=== PATIENT | male | born 1975 | race Caucasian/White ===

== ENCOUNTER 2017-11-30 23:04 | Emergency (ER) | payer OTHER, BC ==
[~2017-11-30] VITALS: Ht 182.8 cm; Wt 117.9 kg
[~2017-11-30 23:04] MED LIST: CEPHALEXIN500 M1 PO; CLARITIN10 MG PO; LISINOPRIL40 MG PO; OMEPRAZOLE20 M2 PO
== END 2017-12-01 02:13 | disposition home or self-care (01) ==
LOC: ED 23:04
DX: S96.812A Strain of other specified muscles and tendons at ankle and foot level, left foot, initial encounter (principal); S90.02XA Contusion of left ankle, initial encounter; I10 Essential (primary) hypertension; K21.9 Gastro-esophageal reflux disease without esophagitis; Z79.899 Other long term (current) drug therapy; Z88.6 Allergy status to analgesic agent; X50.1XXA Overexertion from prolonged static or awkward postures, initial encounter; Y93.89 Activity, other specified; Y92.69 Other specified industrial and construction area as the place of occurrence of the external cause; Y99.9 Unspecified external cause status

== ENCOUNTER 2018-12-14 19:38 | Emergency (ER) | payer BC ==
[~2018-12-14] VITALS: Ht 182.8 cm; Wt 122.5 kg
== END 2018-12-14 21:08 | disposition home or self-care (01) ==
LOC: ED 19:38
DX: S52.611A Displaced fracture of right ulna styloid process, initial encounter for closed fracture (principal); S01.01XA Laceration without foreign body of scalp, initial encounter; Z88.6 Allergy status to analgesic agent; Z79.2 Long term (current) use of antibiotics; Z79.899 Other long term (current) drug therapy; W21.89XA Striking against or struck by other sports equipment, initial encounter; Y93.67 Activity, basketball; Y92.89 Other specified places as the place of occurrence of the external cause; Y99.8 Other external cause status

== ENCOUNTER → 2019-05-06 | Outpatient (CLI) | payer BC ==
[2019-05-06 12:36] LABS: BASO % 0.8 % (0.0-1.0); EOS # 0.1 10*3/uL (0.0-0.4); EOS % 2.3 % (1.0-4.0); HEMATOCRIT 46.1 % (42.0-52.0); HEMOGLOBIN 16.1 g/dl (14.0-18.0); LYMPH # 1.8 10*3/uL (1.3-4.4); LYMPH % 37.2 % (27.0-41.0); MEAN CELL VOLUME 91.3 fl (80.0-94.0); MEAN CORPUSCULAR HGB 31.9 pg (27.0-31.0); MEAN CORPUSCULAR HGB CONC 34.9 g/dl (33.0-37.0); MEAN PLATELET VOLUME 11.2 fl (9.6-12.3); MONO # 0.4 10*3/uL (0.1-1.0); MONO % 9.1 % (3.0-9.0); NEUT # 2.4 10*3/uL (2.3-7.9); PLATELET COUNT AUTOMATED 221 10*3/uL (130-400); RED BLOOD COUNT 5.05 10*6/uL (4.50-5.90); RED CELL DISTRI WIDTH 12.3 % (0-14.5); RETICULOCYTE % 1.64 % (0.50-2.50); WHITE BLOOD COUNT 4.8 10*3/uL (4.8-10.8)
[2019-05-06 12:40] LABS: BILIRUBIN NEGATIVE (NEGATIVE); BLOOD 1+ (NEGATIVE); CLARITY CLEAR (CLEAR); COLOR YELLOW (YELLOW); GLUCOSE NEGATIVE (NEGATIVE); KETONE TRACE (NEGATIVE); LEUKO ESTERASE NEGATIVE (NEGATIVE); NITRITE NEGATIVE (NEGATIVE); PH 5.5 (5.0-9.0); SPECIFIC GRAVITY >= 1.030 (1.005-1.030); UROBILINOGEN 0.2 E.U./dl (0.2-1.0)
[2019-05-06 12:53] LABS: ALBUMIN 4.3 gm/dl (3.1-4.5); ALKALINE PHOSPHATASE 50 U/L (45-117); BUN 15 mg/dl (7-24); CHLORIDE 112 mmol/L (98-107); CHOLESTEROL 111 mg/dL (<200); CREATININE 1.04 mg/dL (0.70-1.30); GAMMA GLUTAMYL TRANSPEPTIDASE 23 U/L (15-85); IRON 100 ug/dL (65-175); POTASSIUM 4.3 mmol/L (3.5-5.1); SGOT/AST 36 IU/L (3-35); SGPT/ALT 96 U/L (12-78); SODIUM 142 mmol/L (136-145); TOTAL IRON BINDING CAPACITY 266 ug/dl (250-450); TOTAL PROTEIN 7.8 gm/dL (6.4-8.2); TRIGLYCERIDES 59 mg/dl (<150); URIC ACID 7.4 mg/dL (3.5-7.2); VLDL CHOLESTEROL 12 mg/dL (6-40)
[2019-05-06 12:57] LABS: BACTERIA 1+; EPITHELIAL CELLS 0-2; MUCOUS 2+; WBC 0-2 wbc/hpf (0-5)
[2019-05-06 13:01] LABS: HDL CHOLESTEROL 47 mg/dl (40-60); LDL CHOLESTEROL 52 mg/dL (9-159)
[2019-05-06 14:02] LABS: VITAMIN D, 25-HYDROXY 31.3 ng/mL (30-100)
[2019-05-06 14:03] LABS: FERRITIN 455.9 ng/mL (22.0-322.0)
[2019-05-07 10:03] LABS: RHEUMATOID ARTHRITIS FACTOR <10.0 IU/mL (0.0-13.9)
[2019-05-09 11:06] LABS: ANTI-DSDNA ANTIBODIES 096339 <1 IU/mL (0-9)
== END | disposition home or self-care (01) ==
LOC: LAB 11:52
PROVIDERS: Family Medicine
DX: E55.9 Vitamin D deficiency, unspecified (principal); R79.89 Other specified abnormal findings of blood chemistry; R53.83 Other fatigue

== ENCOUNTER → 2020-03-23 | Outpatient (CLI) | payer BC | END | disposition home or self-care (01) | LOC: COVID19 10:05 | PROVIDERS: ATTEND Family Medicine | DX: Z20.828 Contact with and (suspected) exposure to other viral communicable diseases (principal) ==

== ENCOUNTER → 2021-06-28 | Outpatient (CLI) | payer BC ==
[2021-06-28 11:36] LABS: BASO % 0.7 % (0.0-1.0); EOS # 0.2 10*3/uL (0.0-0.4); EOS % 2.9 % (1.0-4.0); HEMATOCRIT 45.2 % (42.0-52.0); LYMPH % 35.9 % (27.0-41.0); MEAN CELL VOLUME 89.5 fl (80.0-94.0); MEAN CORPUSCULAR HGB 31.7 pg (27.0-31.0); MEAN CORPUSCULAR HGB CONC 35.4 g/dl (33.0-37.0); MEAN PLATELET VOLUME 10.3 fl (9.6-12.3); MONO # 0.6 10*3/uL (0.1-1.0); MONO % 11.2 % (3.0-9.0); NEUT # 2.6 10*3/uL (2.3-7.9); NEUT % 48.4 % (47.0-73.0); PLATELET COUNT AUTOMATED 204 10*3/uL (130-400); RED BLOOD COUNT 5.05 10*6/uL (4.50-5.90); RED CELL DISTRI WIDTH 12.3 % (0-14.5); RETICULOCYTE % 1.96 % (0.50-2.50); WHITE BLOOD COUNT 5.5 10*3/uL (4.8-10.8)
[2021-06-28 11:37] LABS: BILIRUBIN Negative (Negative); BLOOD 1+ (Negative); CLARITY Clear (Clear); COLOR Yellow (Yellow); GLUCOSE Negative (Negative); KETONE Negative (Negative); LEUKO ESTERASE Negative (Negative); NITRITE Negative (Negative); PH 5.5 (4.5-8.0); UROBILINOGEN 0.2 E.U./dl (0.0-1.0)
[2021-06-28 11:47] LABS: MUCOUS 1+
[2021-06-28 11:55] LABS: ALKALINE PHOSPHATASE 46 U/L (45-117); BUN 12 mg/dl (7-24); CHLORIDE 109 mmol/L (98-107); CHOLESTEROL 126 mg/dL (<200); CREATININE 0.93 mg/dL (0.70-1.30); GAMMA GLUTAMYL TRANSPEPTIDASE 40 U/L (15-85); IRON 133 ug/dL (65-175); LDL CHOLESTEROL 59 mg/dL (9-159); POTASSIUM 4.3 mmol/L (3.5-5.1); SGOT/AST 36 IU/L (3-35); SGPT/ALT 105 U/L (12-78); SODIUM 139 mmol/L (136-145); THYROXINE (T4) TOTAL 7.6 ug/dl (4.5-12.1); TOTAL IRON BINDING CAPACITY 270 ug/dl (250-450); TOTAL PROTEIN 7.2 gm/dL (6.4-8.2); TRIGLYCERIDES 97 mg/dl (<150)
[2021-06-28 12:00] LABS: FERRITIN 302.2 ng/mL (22.0-322.0); T3 UPTAKE 32 % (31-39); VITAMIN D, 25-HYDROXY 18.3 ng/mL (30-100)
== END | disposition home or self-care (01) ==
LOC: LAB 11:07
PROVIDERS: ATTEND Family Medicine
DX: R79.89 Other specified abnormal findings of blood chemistry (principal); R53.83 Other fatigue; E78.5 Hyperlipidemia, unspecified; R74.8 Abnormal levels of other serum enzymes; E55.9 Vitamin D deficiency, unspecified